=== PATIENT | male | born 1985 | race Caucasian/White ===

== ENCOUNTER 2025-08-25 18:25 | Emergency (ER) | payer BC | END 2025-08-25 19:11 | disposition left against medical advice (07) | LOC: ER 18:31 | DX: S61.412A Laceration without foreign body of left hand, initial encounter (principal); Z53.21 Procedure and treatment not carried out due to patient leaving prior to being seen by health care provider; W26.9XXA Contact with unspecified sharp object(s), initial encounter; Y93.89 Activity, other specified; Y92.89 Other specified places as the place of occurrence of the external cause; Y99.9 Unspecified external cause status ==